=== PATIENT | female | born 1955 | race Hispanic/Latino ===

== ENCOUNTER 2018-04-23 18:05 | Emergency (ER) | payer OTHER, SELFPAY ==
[2018-04-23] MEDS ORDERED: SODIUM CHLORIDE 0.9% 1000ML 1,000 ML IV ONE (18:36)
[2018-04-23] MEDS ORDERED: ONDANSETRON HCL 4 MG/2 ML VIAL ONE (18:36)
[2018-04-23] MEDS ORDERED: SIMETHICONE 80 MG TAB.CHEW ONE (18:37)
[2018-04-23] MEDS ORDERED: HYOSCYAMINE SULFATE 0.125 MG TAB.SUBL SL ONE (18:37)
[2018-04-23 18:51] LABS: BASOPHILS % (AUTO) 0.6 % (0.0-5.0); EOSINOPHILS % (AUTO) 0.2 % (0.0-8.0); HEMATOCRIT 43.3 % (36-48); MEAN CORPUSCULAR HEMOGLOBIN 29.5 pg (27.0-33.0); MEAN CORPUSCULAR HGB CONC 34.5 g/dL (32.0-36.0); MEAN CORPUSCULAR VOLUME 85.4 fL (79-99); MONOCYTES % (AUTO) 9.2 % (3.0-13.0); NUCLEATED RED BLOOD CELLS 0.1 % (0.0-0.19); PLATELET COUNT (AUTO) 274 K/uL (130-400); RED BLOOD CELL COUNT(AUTO) 5.07 MIL/uL (4.00-5.50); RED CELL DISTRIBUTION WIDTH 14.5 % (11.0-15.5)
[2018-04-23 19:04] LABS: ALBUMIN 3.2 g/dL (3.5-5.0); BILIRUBIN,TOTAL 0.7 mg/dL (0.2-1.0); CREATININE 1.8 mg/dL (0.5-1.5); TOTAL PROTEIN, SERUM 7.6 g/dL (6.0-8.3)
[2018-04-23 19:07] LABS: POTASSIUM 2.6 mmol/L (3.5-5.1)
[2018-04-23] MEDS ORDERED: POTASSIUM BICARB/CIT AC 25 MEQ TABLET.EFF ONE (19:36)
[2018-04-23] MEDS ORDERED: MAGNESIUM OXIDE 400 MG TABLET PO ONE (19:36)
[2018-04-23 19:51] LABS: CREATINE KINASE MB 2.9 ng/mL (0.5-3.6)
== END 2018-04-23 22:04 | disposition home or self-care (01) ==
LOC: EDH 18:05
DX: E87.6 Hypokalemia (principal); E86.0 Dehydration; I10 Essential (primary) hypertension; E78.5 Hyperlipidemia, unspecified; Z88.0 Allergy status to penicillin
CPT/HCPCS: 36415; 80053; 82550; 82553; 83690; 83735; 84132; 84484; 85025; 93005; 96374; 99285; J2405; J7030

== ENCOUNTER → 2020-03-16 | Outpatient (CLI) | payer OTHER | END | disposition home or self-care (01) | LOC: OIH 13:00 | PROVIDERS: ATTEND Internal Medicine | DX: M17.0 Bilateral primary osteoarthritis of knee (principal); M79.89 Other specified soft tissue disorders; M85.871 Other specified disorders of bone density and structure, right ankle and foot; M77.32 Calcaneal spur, left foot; M85.872 Other specified disorders of bone density and structure, left ankle and foot; M85.842 Other specified disorders of bone density and structure, left hand; M85.841 Other specified disorders of bone density and structure, right hand | CPT/HCPCS: 73130; 73560; 73630 ==

== ENCOUNTER → 2024-12-23 | Outpatient (CLI) | payer MEDICARE ==
--- NOTE | 2024-12-28 08:58 | HMCSR ---
APPROVED REPORT EXAM: Two-dimensional and M-mode echocardiogram with Doppler and color Doppler. INDICATION ICD: R06.09 Chest Pain 2D Dimensions RVDd2.8 cmLVEF(%)56.2 (>50%)LVED Vol(simp.)93.0 mL IVSd1.2 (0.7-1.1cm)FS(%)29 %LVES Vol(simp.)42.0 mL LVDd3.7 (3.8-5.6cm)Ao Root(2D)3.2 (2.0-3.7cm)LVEF(%, simp.)55 % PWd1.1 (0.7-1.1cm)LVOT diam2.1 (1.8-2.4cm)LA ESV INDEX (BP)20.99 mL/m2 LVDs2.6 (2.5-4.0cm)IVC diam1.5 cm Aortic Valve AoV Vmax1.2 m/Mickey Peak GR5.7 mmHgLVOT Vmax1.1 m/s AoV VTI0.2 mAo Mean GR2.8 mmHgLVOT VTI0.19 m JEROME (VMAX)3.0 cm2AVA (VTI) 3.0 cm2 Mitral Valve MV E Vmax57.7 cm/sDECEL Xumc926 ms MV A Vmax80.2 cm/sP 1/2 T58 ms E/A ratio0.7MVA (PHT)3.8 cm2 MR Max PG72 mmHg TDI E/E' Jdqdih54.6E/E' Lateral9.6 Pulmonary Valve PV Vmax0.9 m/sPV VTI0.16 mPV Mean GR2 mmHg PV Peak GR3.5 mmHg Tricuspid Valve RAP (EST) 3 mmHg Left Ventricle The left ventricle structure and function is normal. There is normal LV segmental wall motion. There is mild concentric left ventricular hypertrophy. LVEF is 55-60%. Grade 1 diastolic dysfunction Right Ventricle The right ventricle is normal size. The right ventricular systolic function is normal. Atria The left atrium size is normal. The right atrium size is normal. Aortic Valve Aortic valve is trileaflet. Aortic valve leaflets are sclerotic but open well. Trace aortic regurgita tion. There is no aortic valvular stenosis. Mitral Valve Mitral valve leaflets are mildly sclerotic but open well. Mitral regurgitation is trace. There is no mitral valve stenosis. Tricuspid Valve The tricuspid valve leaflets appear normal. There is trace tricuspid regurgitation. Pulmonic Valve The pulmonic valve leaflets are thin and pliable; valve motion is normal. Great Vessels The aortic root is normal in size. The IVC is normal in size and collapses >50% with inspiration. Pericardium No pericardial effusion. Conclusion LVEF is 55-60%. Grade 1 diastolic dysfunction Aortic valve is trileaflet. Aortic valve leaflets are sclerotic but open well. The aortic root is normal in size. No pericardial effusion.
--- NOTE | 2024-12-28 08:58 | HMCSR ---
APPROVED REPORT Bilateral Lower Extremity Venous Study for Venous Competence., DVT. Indications i87.1 Vein Imaging CFV (R): Normal flow, augmentation and compression. No evidence of DVT. 7.8mm 1278ms SFJ (R): Normal flow, augmentation and compression. No evidence of DVT. FEM (R): Normal flow, augmentation and compression. No evidence of DVT. POP (R): Normal flow, augmentation and compression. No evidence of DVT. DFV (R): Normal flow, augmentation and compression. No evidence of DVT. PTV (R): Normal flow, augmentation and compression. No evidence of DVT. Peroneals (R): Normal flow, augmentation and compression. No evidence of DVT. CFV (L): Normal flow, augmentation and compression. No evidence of DVT. 10.5mm 2858ms SFJ (L): Normal flow, augmentation and compression. No evidence of DVT. FEM (L): Normal flow, augmentation and compression. No evidence of DVT. POP (L): Normal flow, augmentation and compression. No evidence of DVT. DFV (L): Normal flow, augmentation and compression. No evidence of DVT. PTV (L): Normal flow, augmentation and compression. No evidence of DVT. Peroneals (L): Normal flow, augmentation and compression. No evidence of DVT. Technologist Impression Deep veins of bilateral lower extrimities appear patent and compressible without thrombus. Deep vein reflux seen in RCFV and LCFV. Superficial venous insufficiency seen in LGSV RGSV Junction 3.3mm 0.0ms thigh 1.7mm 292ms knee 2.3mm 0.0ms calf 1.8mm 458ms RSSV prox 1.4mm 0.0ms Mid 1.4 0.0ms LGSV Junction 7.2mm 1550ms Thigh 2.1mm 0.0ms Knee 2.4mm 550ms calf 2.1mm 2133ms LSSV Prox 1.9mm 350ms Mid 2.5mm 0.0ms Conclusion Deep vein reflux seen in RCFV and LCFV. Superficial venous insufficiency seen in LGSV Conclusion Deep vein reflux seen in RCFV and LCFV. Superficial venous insufficiency seen in LGSV
== END | disposition home or self-care (01) ==
LOC: SHCH 09:50
PROVIDERS: ATTEND Internal Medicine Cardiovascular Disease
DX: I08.0 Rheumatic disorders of both mitral and aortic valves (principal); I87.2 Venous insufficiency (chronic) (peripheral); I87.1 Compression of vein; R07.9 Chest pain, unspecified; R06.09 Other forms of dyspnea
CPT/HCPCS: 93306; 93970

== ENCOUNTER → 2025-01-18 | Outpatient (CLI) | payer MEDICARE ==
[2025-01-18] MEDS: REGADENOSON 0.4 MG/5 ML PF SYG IVP ONE (11:15)
== END | disposition home or self-care (01) ==
LOC: SHCH 08:41
PROVIDERS: ATTEND Internal Medicine Cardiovascular Disease
DX: I20.0 Unstable angina (principal)
CPT/HCPCS: 78452; 93017; J2785; A9500 ×2

== ENCOUNTER 2025-03-30 05:54 | Day surgery (SDC) | payer MEDICARE ==
[2025-03-26 10:01] VITALS: BP 180/81; PULSE 89; RESP 18; TEMP 97.2
[2025-03-26 10:07] LABS: BASOPHILS # (AUTO) 0.03 K/uL (0.00-0.20); BASOPHILS % (AUTO) 0.3 % (0.0-5.0); EOSINOPHILS # (AUTO) 0.02 K/uL (0.00-0.70); EOSINOPHILS % (AUTO) 0.2 % (0.0-8.0); HEMATOCRIT 40.1 % (36-48); IMMATURE GRANULOCYTE ABSOLUTE 0.06 K/uL (0-1); LYMPHOCYTES # (AUTO) 2.5 K/uL (1.0-4.8); LYMPHOCYTES % (AUTO) 21.4 % (21.0-51.0); MEAN CORPUSCULAR HEMOGLOBIN 25.4 pg (27.0-33.0); MEAN CORPUSCULAR HGB CONC 31.4 g/dL (32.0-36.0); MEAN CORPUSCULAR VOLUME 80.8 fL (79-99); MONOCYTES # (AUTO) 0.8 K/uL (0.1-1.0); MONOCYTES % (AUTO) 6.9 % (3.0-13.0); NEUTROPHILS # (AUTO) 8.2 K/uL (1.8-7.7); NEUTROPHILS % (AUTO) 70.7 % (40.0-77.0); PLATELET COUNT (AUTO) 313 K/uL (130-400); RED BLOOD CELL COUNT(AUTO) 4.96 MIL/uL (4.00-5.50); RED CELL DISTRIBUTION WIDTH 15.7 % (11.0-15.5); WHITE BLOOD COUNT (AUTO) 11.6 K/uL (4.8-10.8)
[2025-03-26 10:12] LABS: CREATININE 0.7 mg/dL (0.5-1.0); POTASSIUM 4.1 mmol/L (3.5-5.1)
[2025-03-26 10:14] LABS: INR 0.96 (0.85-1.15); PROTHROMBIN TIME 10.2 SEC (9.6-11.6)
[2025-03-26 10:15] LABS: PARTIAL THROMBOPLASTIN TIME 23.5 SEC (26.3-35.5)
[2025-03-26 10:32] LABS: B-TYPE NATRIURETIC PEPTIDE 30 pg/mL (0-100)
--- NOTE | 2025-03-26 11:01 | EKG ---
[facility] Test Date: 2025-03-26 Test Time: 09:55:23 Pat Name: ZULLY KUMAR Department: [facility] Room: Gender: F Flight Communications Specialist: [id number] : 1955 Requested By: DARRIAN DE LA PAZ Order Number: [id number] Reading MD: Darrian De La Paz Measurements Intervals [place] Rate: 82 P: 45 MI: 144 QRS: 11 QRSD: 82 T: 28 QT: 384 QTc: 449 Interpretive Statements Sinus rhythm Probable left atrial enlargement Compared to ECG 07/18/2018 10:58:26 ST (T wave) deviation no longer present Electronically Signed On 03-26-2025 15:52:14 CDT by Darrian De La Paz Please click the below link to view image of tracing.
--- NOTE | 2025-03-26 12:18 | HMCIMG ---
CHEST 1VW HISTORY: Re-op COMPARISON: 07/18/2018 FINDINGS: A frontal projection of the chest was obtained. No acute pulmonary infiltrates is seen. The heart is borderline enlarged. Prominent interstitial markings are seen. Degenerative changes are seen IMPRESSION: 1. No acute pulmonary infiltrate is seen.
--- NOTE | 2025-03-29 11:41 | NUR ---
report reported wbc to anselmo mccray. received orders to collect ua on admission.
[2025-03-30] VITALS (12 sets, daily range): BP systolic 110–136; BP diastolic 61–84; PULSE 67–95; RESP 15–18; TEMP 97–98.3
[~2025-03-30] VITALS: Ht 152.4 cm; Wt 88.7 kg
[~2025-03-30 05:54] MED LIST: AMLO-257 PO; CLOP75TA32 PO; DOCU100C33 PO; FOLI1 PO; IBUP-2070 PO; LOSA50TA64 PO; METH2.5T6 PO; ROSU40TA88 PO
[2025-03-30] MEDS: 0.9%NACL 1000ML 1,000 ML IV SCH (06:54)
[2025-03-30] MEDS ORDERED: NITROGLYCERIN 50MG VIAL ONE (06:59)
[2025-03-30] MEDS ORDERED: LIDOCAINE HCL 400MG/20ML VIAL ONE (06:59)
[2025-03-30] MEDS ORDERED: HEParin-NS 1,000 UNIT/500 ML 1,000 ML IV ONE (06:59)
[2025-03-30] MEDS ORDERED: IOHEXOL 350 MG/ML 100ML INFUS..BTL IV ONE (06:59)
[2025-03-30] MEDS ORDERED: HEParin 10,000 UNIT/10ML (1,000 UNIT/ML) VIAL ONE (07:06)
[2025-03-30] MEDS ORDERED: MIDAZOLAM HCL 1 MG/ML 2ML VIAL ONE (07:21)
[2025-03-30] MEDS ORDERED: FENTanyl CITRate PF 50 MCG/1 ML 2ML VIAL ONE (07:21)
[2025-03-30] MEDS ORDERED: BIVALIRUDIN 250 MG/VIAL IV ONE (07:22)
[2025-03-30 07:43] LABS: APPEARANCE,URINE CLEAR (CLEAR); BILIRUBIN,URINE NEGATIVE (NEGATIVE); COLOR,URINE YELLOW (YELLOW); GLUCOSE, URINE (UA) NEGATIVE (NEGATIVE); KETONES,URINE NEGATIVE (NEGATIVE); LEUKOCYTE ESTERASE ,URINE NEGATIVE Leu/uL (NEGATIVE); NITRATE,URINE NEGATIVE (NEGATIVE); OCCULT BLOOD,URINE SMALL (NEGATIVE); PH,URINE 6.5 (5.0-8.0); PROTEIN,URINE 10 mg/dL (NEGATIVE); UROBILINOGEN,URINE 0.2 mg/dL (0.2-1.0)
[2025-03-30 07:45] LABS: ADD UA MICROSCOPIC YES
[2025-03-30 07:46] LABS: MUCUS,URINE RARE LPF (None Seen); SQUAMOUS EPITHELIAL CELL,UR RARE /HPF (0-2); WBC,URINE 0-1 /HPF (0-1)
[2025-03-30] MEDS ORDERED: DEXTROSE 50%-WATER 50 ML DISP.SYRIN IV PRN (08:00)
[2025-03-30] MEDS ORDERED: NITROGLYCERIN 0.4 MG SL TAB SL PRN (08:00)
[2025-03-30] MEDS ORDERED: GLUCAGON 1MG KIT 1 MG ML IM PRN (08:00)
[2025-03-30] MEDS ORDERED: 0.9%NACL 1000ML 1,000 ML IV SCH (08:00)
--- NOTE | 2025-03-30 08:04 | PRN ---
Left Heart Cath-De La Paz PROCEDURE: 1. Right common femoral arterial sheath placement. 2. Selective coronary angiogram. 3. Left heart catheterization. 4. Left ventriculogram. INDICATIONS: High-risk stress test DESCRIPTION OF PROCEDURE: The patient was brought to the catheterization suite and prepped and draped in sterile fashion. An IV was started, if not already in place and both groins were exposed for arterial access. 1% lidocaine was used for local anesthesia and then a micropuncture kit was used to gain access and once free-flowing blood was seen, modified Seldinger technique was utilized to place a 6 Wolof sheath into the right common femoral artery. Next, preformed JL4 and JR4 Catheters were then used to selectively engage the [place] coronary vessels and multiple hand contrast injections were performed in different views to define the coronary anatomy. Next, a 6 Wolof angled pigtail catheter catheter was used to cross the aortic valve. Pressure measurements were obtained in the left ventriculogram was in the 30 BURRELL position. Next, pullback method was performed. At the end of the case, sheath was pulled with the use of a Perclose system for closure of arteriotomy site. No complications occurred. FINDINGS: The left main artery bifurcates into the LAD and left circumflex and has no stenosis present. The left anterior descending artery and its diagonal branch system are large slightly tortuous distally with no stenosis present. The left circumflex artery is a codominant system giving rise to the left posterolateral branch. The left circumflex artery its obtuse marginal branch system and the RPL are free of any significant disease. The right coronary artery is a codominant system giving rise to the right posterior descending artery. The right coronary artery and the PDA are free of any significant stenosis. LVEDP is slightly elevated at 17 mmHg Left ventricular ejection fraction is greater than 65% Wall motion in views obtained as normal There was no evidence of aortic stenosis or mitral regurgitation. RECOMMENDATIONS: Continue medical management for hypertension and dyslipidemia Encourage walking program Encourage weight loss WERNER DE LA PAZ MD March 30, 2025 08:04
== END 2025-03-30 14:08 | disposition home or self-care (01) ==
LOC: DAH 05:54
PROVIDERS: ATTEND Internal Medicine Cardiovascular Disease
DX: R94.39 Abnormal result of other cardiovascular function study (principal); I25.118 Atherosclerotic heart disease of native coronary artery with other forms of angina pectoris; I87.1 Compression of vein; I87.2 Venous insufficiency (chronic) (peripheral); I50.33 Acute on chronic diastolic (congestive) heart failure; E78.5 Hyperlipidemia, unspecified; M06.9 Rheumatoid arthritis, unspecified; E66.9 Obesity, unspecified; J45.909 Unspecified asthma, uncomplicated; Z88.6 Allergy status to analgesic agent; Z68.33 Body mass index [BMI] 33.0-33.9, adult; Z90.710 Acquired absence of both cervix and uterus; Z79.01 Long term (current) use of anticoagulants; Z79.899 Other long term (current) drug therapy
CPT/HCPCS: 36415; 71045; 80048; 81001; 83880; 85025; 85610; 85730; 93005; 93458; 96360; 96361; 99156; 99157; A4606; C1760; C1894; J0583; J1644; J2250; J3010; J3490; Q9967; A4215; A4216; A4221; A4222; A4223; A4663; Q9965

== ENCOUNTER 2025-04-29 06:06 | Day surgery (SDC) | payer MEDICARE ==
[2025-04-27 10:13] LABS: BASOPHILS # (AUTO) 0.03 K/uL (0.00-0.20); BASOPHILS % (AUTO) 0.4 % (0.0-5.0); EOSINOPHILS # (AUTO) 0.25 K/uL (0.00-0.70); EOSINOPHILS % (AUTO) 3.2 % (0.0-8.0); HEMATOCRIT 37.9 % (36-48); IMMATURE GRANULOCYTE ABSOLUTE 0.03 K/uL (0-1); LYMPHOCYTES # (AUTO) 2.7 K/uL (1.0-4.8); LYMPHOCYTES % (AUTO) 33.6 % (21.0-51.0); MEAN CORPUSCULAR HEMOGLOBIN 25.4 pg (27.0-33.0); MEAN CORPUSCULAR HGB CONC 31.7 g/dL (32.0-36.0); MEAN CORPUSCULAR VOLUME 80.3 fL (79-99); MONOCYTES # (AUTO) 0.7 K/uL (0.1-1.0); MONOCYTES % (AUTO) 8.5 % (3.0-13.0); NEUTROPHILS # (AUTO) 4.3 K/uL (1.8-7.7); NEUTROPHILS % (AUTO) 53.9 % (40.0-77.0); PLATELET COUNT (AUTO) 244 K/uL (130-400); RED BLOOD CELL COUNT(AUTO) 4.72 MIL/uL (4.00-5.50); RED CELL DISTRIBUTION WIDTH 15.8 % (11.0-15.5); WHITE BLOOD COUNT (AUTO) 7.9 K/uL (4.8-10.8)
[2025-04-27 10:16] VITALS: BP 136/82; PULSE 82; RESP 14; TEMP 97.3
[2025-04-27 10:21] LABS: CREATININE 0.7 mg/dL (0.5-1.0); POTASSIUM 4.1 mmol/L (3.5-5.1)
[2025-04-27 10:23] LABS: INR 0.96 (0.85-1.15); PROTHROMBIN TIME 10.2 SEC (9.6-11.6)
[2025-04-27 10:25] LABS: PARTIAL THROMBOPLASTIN TIME 24.3 SEC (26.3-35.5)
[~2025-04-29] VITALS: Ht 160 cm; Wt 89.3 kg
[~2025-04-29 06:06] MED LIST changes: -DOCU100C33 PO; +ISOS30TA92 PO
[2025-04-29 06:11] VITALS: BP 141/85; PULSE 86; RESP 18; TEMP 97.5
[2025-04-29] MEDS: 0.9%NACL 1000ML 1,000 ML IV SCH (06:35)
[2025-04-29] MEDS ORDERED: HEParin 10,000 UNIT/10ML (1,000 UNIT/ML) VIAL ONE (07:16)
[2025-04-29] MEDS ORDERED: IODIXANOL 320 MG/ML 100 ML VIAL ONE (07:16)
[2025-04-29] MEDS ORDERED: LIDOCAINE HCL 400MG/20ML VIAL ONE (07:16)
[2025-04-29] MEDS ORDERED: HEParin-NS 1,000 UNIT/500 ML 1,000 ML IV ONE (07:16)
[2025-04-29] MEDS ORDERED: FENTanyl CITRate PF 50 MCG/1 ML 2ML VIAL ONE (07:36)
[2025-04-29] MEDS ORDERED: MIDAZOLAM HCL 1 MG/ML 2ML VIAL ONE (07:36)
[2025-04-29] MEDS ORDERED: DEXTROSE 50%-WATER 50 ML DISP.SYRIN IV PRN (08:00)
[2025-04-29] MEDS ORDERED: GLUCAGON 1MG KIT 1 MG ML IM PRN (08:00)
--- NOTE | 2025-04-29 08:05 | PRN ---
Procedure Note INDICATION FOR PROCEDURE: [] Iliac vein compression Deep venous reflux Venous insufficiency PROCEDURE: [] Conscious sedation Left common femoral vein sheath placement 8 Martiniquais Bilateral common femoral venogram Intravascular ultrasound of IVC, bilateral common iliac external iliac common femoral veins DATE OF PROCEDURE: April 29, 2025 HOD CARRIER: Darrian De La Paz MD, F.A.C.C. PROCEDURE NOTE: [] Patient was brought to catheterization suite and prepped and draped in sterile fashion. An IV was started if not already in place and both groins were exposed for arterial access. 2% lidocaine was used for local anesthesia and then a micro puncture kit was used to gain access and once free flow blood was seen modified Seldinger technique was utilized to place a 8 Martiniquais sheath in the left common femoral vein. Next a venogram was performed. Next a glidewire was then placed in the IVC and then an IVUS catheter was placed over Glidewire and interrogation of IVC left common iliac external iliac and common femoral vein was performed with the intravascular ultrasound catheter. Next it was removed and then an Omni flush catheter was then placed over wire and then used to direct the Glidewire to the right common femoral vein. Once this occurred the Omni flush catheter was then advanced wire was removed and then a venogram was performed in the right. Next over wire the Omni flush catheter was removed and an IVUS catheter was then placed to interrogate the right common femoral vein external iliac and common iliac vein. Findings were as described below. At end of case a Vascade closure system was used to close venous access site on left and no complications occurred. FINDINGS: [] There is 51.2% compression of left common iliac vein and 60.6 compression of left external iliac vein measuring 14.5 mm There is a 73.6% compression of right common iliac vein and a 56.5% compression of right external iliac vein and a 14.5 mm vessel IMPRESSION: [] Critical compression of bilateral common iliac and external iliac veins PLAN: [] Patient to follow up in clinic in 1-2 weeks and we will try and obtain au thorization regarding patient's critical iliac vein compression to proceed with iliac vein intervention bilaterally DARRIAN DE LA PAZ MD Apr 29, 2025 08:05
[2025-04-29 08:20] VITALS: BP 137/77; PULSE 66; RESP 13; TEMP 97
[2025-04-29 08:35] VITALS: BP 137/67; PULSE 76; RESP 17
[2025-04-29 08:50] VITALS: BP 121/67; PULSE 75; RESP 11
[2025-04-29 09:05] VITALS: BP 128/63; PULSE 77; RESP 11
[2025-04-29 09:29] VITALS: BP 132/64; PULSE 76; RESP 14; TEMP 97
== END 2025-04-29 09:29 | disposition home or self-care (01) ==
LOC: DAH 06:06
PROVIDERS: ATTEND Internal Medicine Cardiovascular Disease
DX: I87.1 Compression of vein (principal); I87.2 Venous insufficiency (chronic) (peripheral); I20.0 Unstable angina; E78.5 Hyperlipidemia, unspecified; E66.9 Obesity, unspecified; M06.9 Rheumatoid arthritis, unspecified; Z90.710 Acquired absence of both cervix and uterus; Z68.33 Body mass index [BMI] 33.0-33.9, adult; Z88.6 Allergy status to analgesic agent; Z88.0 Allergy status to penicillin; Z79.01 Long term (current) use of anticoagulants; Z79.899 Other long term (current) drug therapy
CPT/HCPCS: 80048; 85025; 85610; 85730; 36415; 99156; 99157; 36012; 75822; 37252; 37253 ×5; A4223 ×3; C1769; C1894 ×2; C1760; C1753; J3010; J3490; J7030; J2250; J1644; Q9967; A4215; A4222; A4221; A4663; A4216; A4606

== ENCOUNTER 2025-07-21 06:07 | Day surgery (SDC) | payer MEDICARE ==
[2025-07-19 09:48] LABS: IMMATURE GRANULOCYTE ABSOLUTE 0.03 K/uL (0-1); NUCLEATED RED BLOOD CELLS 0.0 % (0.0-0.19); PLATELET COUNT (AUTO) 287 K/uL (130-400); RED BLOOD CELL COUNT(AUTO) 4.57 MIL/uL (4.00-5.50); RED CELL DISTRIBUTION WIDTH 17.8 % (11.0-15.5); WHITE BLOOD COUNT (AUTO) 9.4 K/uL (4.8-10.8)
[2025-07-19 10:00] LABS: INR 0.96 (0.85-1.15)
[2025-07-19 10:06] LABS: CREATININE 0.7 mg/dL (0.5-1.0); GLOMERULAR FILTR. RATE CALC 95.0 mL/min (>90); GLUCOSE,RANDOM 94.0 mg/dL (70-105); SODIUM SERUM 142.0 mmol/L (136-145); UREA NITROGEN, BLOOD 15.0 mg/dL (7-18)
[2025-07-19 10:11] VITALS: BP 144/86; PULSE 75; RESP 15; TEMP 97.3
[~2025-07-21] VITALS: Ht 165.1 cm; Wt 87.0 kg
[2025-07-21] VITALS (10 sets, daily range): BP systolic 122–162; BP diastolic 68–85; PULSE 68–90; RESP 11–16; TEMP 96.8–97.2
[~2025-07-21 06:07] MED LIST changes: -AMLO-257 PO; -CLOP75TA32 PO; +IBUP-1492 PO; -IBUP-2070 PO; -ISOS30TA92 PO
[2025-07-21] MEDS: 0.9%NACL 1000ML 1,000 ML IV SCH (06:36)
[2025-07-21] MEDS ORDERED: LIDOCAINE HCL 400MG/20ML VIAL ONE (07:07)
[2025-07-21] MEDS ORDERED: HEParin-NS 1,000 UNIT/500 ML 1,000 ML IV ONE (07:07)
[2025-07-21] MEDS ORDERED: NITROGLYCERIN 50MG VIAL ONE (07:07)
[2025-07-21] MEDS ORDERED: IODIXANOL 320 MG/ML 100 ML VIAL ONE (07:08)
[2025-07-21] MEDS ORDERED: MIDAZOLAM HCL 1 MG/ML 2ML VIAL ONE ×2 (07:25→07:30)
--- NOTE | 2025-07-21 08:16 | PRN ---
Procedure Note INDICATION FOR PROCEDURE: [] Severe bilateral common iliac vein compression PROCEDURE: [] Conscious sedation Bilateral common femoral vein sheath placement 9 Jamaican Bilateral common femoral venogram Intravascular ultrasound of IVC, bilateral common iliac external iliac common femoral veins 14 mm x 150 mm Medtronic venous self expanding stent to left common iliac and left external iliac vein 12 mm x 120 mm Medtronic venous self expanding stent to right common iliac and external iliac vein DATE OF PROCEDURE: July 21, 2025 GRAIN OPERATOR: Darrian De La Paz MD, F.A.C.C. PROCEDURE NOTE: [] Patient brought to catheterization suite prepped draped sterile fashion IV started if not already in place both groins exposed for venous access. Ultrasound guidance was utilized for placement of a 9 Jamaican sheath into the left common femoral vein using modified Seldinger technique. Same technique was utilized for placing a 9 Jamaican sheath to the right common femoral vein Bilateral common femoral venogram was performed. Bilateral intravascular ultrasound of IVC, iliac external iliac and common femoral veins 14 mm x 150 mm Medtronic venous self expanding stent placed to left common iliac and external iliac vein and deployed. 12 mm x 120 mm Medtronic venous self expanding stent was then placed in the right common iliac and external iliac vein and deployed . Follow up ultrasound was done of IVC, bilateral common iliac external iliac common femoral veins and both stents were noted to be well apposed. At end of case Vascade closure system was used for closure of both sites and no complications occurred. FINDINGS: [] Critical compression known of bilateral common iliac and external iliac veins greater than 50% IMPRESSION: [] Successful stent placement to left common iliac and external iliac vein with the use of a 14 mm x 150 mm Medtronic venous self expanding stent Successful stent placement to right common iliac and external iliac vein with the use of a 12 mm x 120 mm Medtronic venous self expanding stent PLAN: [] Secondary to aspirin allergy patient will be maintained on clopidogrel at 75 mg daily for 90 days uninterrupted. Patient will be dismissed home later today. DARRIAN DE LA PAZ MD Jul 21, 2025 08:15
[2025-07-21] MEDS ORDERED: 0.9%NACL 1000ML 1,000 ML IV SCH (08:30)
[2025-07-21] MEDS ORDERED: DEXTROSE 50%-WATER 50 ML DISP.SYRIN IV PRN (08:30)
[2025-07-21] MEDS ORDERED: GLUCAGON 1MG KIT 1 MG ML IM PRN (08:30)
--- NOTE | 2025-07-21 10:48 | NUR ---
ACTIVITY/URINARY: ASSISTED TO STANDING POSITION WITHOUT COMPLAINING OF DIZZINESS. AMBULATED TO BATHROOM SLOW STEADY GAIT WITH ASSISTANCE. PT VOIDED QS YELLOW COLOR URINE IN TOILET. ASSISTED BACK TO BED.
== END 2025-07-21 12:25 | disposition home or self-care (01) ==
LOC: DAH 06:07
PROVIDERS: ATTEND Internal Medicine Cardiovascular Disease
DX: I87.1 Compression of vein (principal); I87.2 Venous insufficiency (chronic) (peripheral); I10 Essential (primary) hypertension; E78.5 Hyperlipidemia, unspecified; M06.9 Rheumatoid arthritis, unspecified; E66.9 Obesity, unspecified; J45.909 Unspecified asthma, uncomplicated; I20.0 Unstable angina; Z68.33 Body mass index [BMI] 33.0-33.9, adult; Z88.0 Allergy status to penicillin; Z88.6 Allergy status to analgesic agent; Z79.01 Long term (current) use of anticoagulants; Z90.710 Acquired absence of both cervix and uterus; Z79.899 Other long term (current) drug therapy
CPT/HCPCS: 80048; 85025; 85610; 85730; 36415; 37238; 37239; 37252; 37253 ×5; 99156; 99157; 36005; C1876 ×2; C1769; C1894 ×2; C1760; C1753; J3010; J3490 ×2; J7030; J1644 ×2; J2250 ×2; Q9967; A4215; A4222; A4221; A4663; A4216; A4606; A4223 ×3; 75822; 96360; 96361

== ENCOUNTER 2025-09-15 06:25 | Observation (INO) | payer MEDICARE ==
[2025-09-13 10:45] LABS: IMMATURE GRANULOCYTE ABSOLUTE 0.07 K/uL (0-1); NUCLEATED RED BLOOD CELLS 0.0 % (0.0-0.19); PLATELET COUNT (AUTO) 290 K/uL (130-400); RED BLOOD CELL COUNT(AUTO) 4.48 MIL/uL (4.00-5.50); RED CELL DISTRIBUTION WIDTH 16.9 % (11.0-15.5); WHITE BLOOD COUNT (AUTO) 7.1 K/uL (4.8-10.8)
[2025-09-13 10:53] VITALS: BP 150/85; PULSE 78; RESP 18; TEMP 97.3
[2025-09-13 10:53] LABS: CREATININE 0.6 mg/dL (0.5-1.0); GLOMERULAR FILTR. RATE CALC 98.0 mL/min (>90); GLUCOSE,RANDOM 96.0 mg/dL (70-105); SODIUM SERUM 143.0 mmol/L (136-145); UREA NITROGEN, BLOOD 13.0 mg/dL (7-18)
[2025-09-13 10:56] LABS: INR 0.95 (0.85-1.15)
--- NOTE | 2025-09-13 11:05 | NUR ---
RE: IS INITIAL IS INITIAL TEACHING DONE BY RT TEMO DURING PREOP.
[2025-09-15] VITALS (28 sets, daily range): BP systolic 100–150; BP diastolic 56–84; PULSE 60–105; RESP 18–19; TEMP 97.1–98.4; O2SAT 98–99
[~2025-09-15] VITALS: Ht 165.1 cm; Wt 89.4 kg
[2025-09-15] MEDS: LACTATED RINGERS 1000ML 1,000 ML IV ONE (06:16)
[2025-09-15] MEDS: CLINDAMYCIN IVPB 900MG/50ML 0 ML IV ONE (06:16)
[2025-09-15] MEDS ORDERED: TRANEXAMIC ACID 1000MG/10ML ONE (06:37)
[2025-09-15] MEDS ORDERED: MIDAZOLAM HCL 1 MG/ML 2ML VIAL ONE (06:52)
[2025-09-15] MEDS ORDERED: LIDOCAINE 2%-EPI 1:200,000 20 ML VIAL IJ ONE (07:21)
[2025-09-15] MEDS ORDERED: HYDROcodone/APAP 5/325 1 TAB TABLET PO PRN (07:30)
[2025-09-15] MEDS ORDERED: FERROUS FUMARATE 324 MG TABLET PO PRN (07:30)
[2025-09-15] MEDS ORDERED: PoTASSium chl 10% ELIXIR 20MEQ 20 MEQ/15 ML UDCUP PO PRN (07:30)
[2025-09-15] MEDS: 0.9%NACL 1000ML 1,000 ML IV SCH (07:30)
[2025-09-15] MEDS ORDERED: CYCLOBENZAPRINE HCL 10 MG TABLET PO PRN (07:30)
[2025-09-15] MEDS ORDERED: PoTASSium chloRIDE 20MEQ ER 20 MEQ ERTAB PO PRN (07:30)
[2025-09-15] MEDS: TRANEXAMIC ACID 1000MG/10ML IV ONE (09:13)
[2025-09-15] MEDS ORDERED: NEOSTIGMINE METHYLSULFATE 1MG/ML IV ONE (09:19)
[2025-09-15] MEDS ORDERED: GLYCOPYRROLATE 0.2 MG/ML 5 ML VIAL ONE (09:19)
--- NOTE | 2025-09-15 09:21 | OP ---
Operative Note: DATE OF PROCEDURE: 09/15/25 PREOPERATIVE DIAGNOSIS: Left knee osteoarthritis. POSTOPERATIVE DIAGNOSIS: Left knee osteoarthritis. PROCEDURE PERFORMED: Left knee total knee arthroplasty. SURGEON: Heidi Sutton MD MANNEQUIN SANDER AND FINISHER: Trace Lindsey and Mariaa Quintana. ANESTHESIA: General with adductor canal block. ANESTHESIA: HEARING AID SPECIALIST Demond Laguna. ESTIMATED BLOOD LOSS: 50cc. COMPLICATIONS: None. DRAINS: None. SPECIMENS REMOVED: resected bone. Not sent to pathology. IMPLANTS: [employer] Journey II BCS size 4 Oxinium femur, size 4 tibial base plate, 35 mm patella, 12 mm polyethylene STATEMENT OF MEDICAL NECESSITY: The patient is a 70-year-old female who suffers from left knee arthritis secondary to rheumatoid arthritis failing conservative management. After discussion of the risks, benefits, and alternatives with the patient, they voluntarily agreed to undergo the aforementioned procedure. DESCRIPTION OF PROCEDURE: Patient was properly identified in the preoperative holding area. Surgical site marking was verified and surgery consent reviewed. The patient was then taken to the operating room and placed in supine position on the OR table. After induction of general anesthesia, preoperative antibiotics were given, all bony prominences were well-padded, and a well padded tourniquet was applied but not inflated at this time. The left lower extremity was then prepped and draped in usual sterile fashion. Surgical time out was done verifying correct surgery, side, site, and location to be performed. We then began the procedure by exsanguinating the limb using an Esmarch and inf lating the tourniquet to 350 mmHg. At this point, we made an anterior midline incision using a 10 blade, coming down sharply the level of the fascia. Skin flaps were elevated medially and laterally. We then obtained a clean 10 blade and performed a standard medial parapatellar arthrotomy. We excised the infrapatellar fat pad. We performed our soft tissue releases off of the tibia. We transected the ACL and removed the anterior portion of the medial & lateral meniscus. We then brought the knee into hyperflexion with the patella everted. We used our entry reamer to enter the femoral canal. We then placed our intramedullary cutting guide for our distal femoral cutting block. We then performed our distal femoral osteotomy ensuring appropriate rotation and removed the bony wafer. We then removed these pins and block and then used jig 2 to size the distal femur with the after mentioned size found. We then placed our 5-in-1 cutting block in 3 degrees of external rotation and took our 5 cuts ensuring to protect the patellar tendon and the collateral ligaments. We then removed the cutting block and our bony fragments using a curved osteotome. We then placed our PCL retractor subluxating the tibia anteriorly. Using an extra medullary tibial cutting guide, we hung the block for our proximal tibial cut taking 2 mm off the more diseased portion. Prior to pinning this block in place, we ensured appropriate varus/valgus alignment and posterior slope similar to the [place] slope of the patient's knee. We then performed our proximal tibial osteotomy and removed the bony wafer using Bovie electrocautery to release any remaining soft tissue attachments. We then used our tibial sizing paddle and checked once more for varus & valgus alignment and found this to be appropriate. At this point, we pinned our tibial paddle in place. We then removed the PCL retractor and subluxated the tibia posteriorly while we placed our femoral trial component. We then finished preparing the notch with the reamer and box chisel. The notch portion of the trial femoral component was then placed. A posterior stabilized polyethylene, size 9 trial was placed. This was immediately increased to a size trial polyethylene due to laxity with varus and valgus stress. The knee was then taken through range of motion and found to have stable full range of motion. We then placed a bump under the ankle and everted the patella to perform our freehand cut of the undersurface the patella. We then sized our patella and reamed to the lug holes for this. We placed our trial patellar component and begin to take the knee through range of motion. The patella had mild lateral tracking which improved after a lateral release. At this point we began removing our trial components and punched the tibial keel prior to removing our tibial trial component. Final components were opened and cement was mixed on the back table while we injected local cocktail in the posterior capsule. We then thoroughly irrigated out the bone and dried the bony surfaces. We cemented our tibial component in place ensuring to remove excess cement and placed our trial polyethylene. We then cemented our femoral component in place once again taking time to ensure excess cement was removed leg was brought into full extension to help squeeze the excess cement from around the femoral component. We then brought the knee back in a flexion to remove this portion of the cement at this point we placed the ankle in a bump thoroughly irrigated off the patellar component and cemented our patellar component in standard fashion again removing excess cement. While we waited for the cement to cure, we thoroughly irrigated out the wound with normal saline. Once our cement had cured, we took the knee through a range of motion and found full and stable range of motion. We then elected to use the size 12 polyethylene and removed our trial polyethylene. We impacted our final polyethylene component in place in standard fashion and took the knee through a range of motion check once more. This was satisfactory so we began to repair the arthrotomy using #5 Ethibond and #1 Vicryl in interrupted [id number] fashion. Subcutaneous tissue was repaired using 2-0 Vicryl. Running subcuticular 3-0 Monocryl stitch with Dermabond placed over this for the skin. We then applied a foam barrier dressing and a pressure dressing consisting of 4 x 4's fluffs and an Gary wrap. The tourniquet was then deflated. Patient was awakened from anesthesia, and they were taken to the recovery room in stable condition. HEIDI SUTTON MD Sep 15, 2025 09:21
[2025-09-15] MEDS: SUGAMMADEX SODIUM 200 MG/2 ML VIAL IV ONE (09:54)
--- NOTE | 2025-09-15 10:51 | HMCIMG ---
EXAM: CR right Knee, 2 View. CLINICAL HISTORY: S/P LEFT TKA SURGERY COMPARISON: None provided. FINDINGS: Postsurgical changes of left knee arthroplasty. Gas within the joint space. Hardware components appear stable. No periprosthetic fractures. No findings to suggest loosening or motion about the hardware. No acute fracture or aggressive appearing osseous lesion. The soft tissues are unremarkable. IMPRESSION: No acute osseous pathology evident. Postsurgical change of left knee arthroplasty. Hardware appears appropriately positioned and stable. /[facility]
--- NOTE | 2025-09-15 10:52 | NUR ---
PATIENT REPORT RECEIVED REPORT FROM PACU NURSE GENTRY. PATIENT OF DR. ELISE FOR LT TKA. DERMABOND WITH OPTIFOAM AND ZOFIA BANDAGE IN PLACE. FIRST DOSE OF ANCEF AND TORADOL WAS ADMINISTERED. PATIENT GIVEN 25 MICS OF FENTANYL FOR PAIN. EBL OF 50. PROVIDER ORDERS HAVE BEEN PLACED.
--- NOTE | 2025-09-15 11:00 | NUR ---
UNIT ARRIVAL RECEIVED PATIENT FROM PACU NURSE JESS. PATIENT RESTING COMFORTABLY NO SIGNS OF DISTRESS NOTED. FAMILY AT BEDSIDE. PATIENT DENIES PAIN AT THIS TIME. PHYSICAL THERAPY AND RESPIRATORY THERAPY NOTIFIED. SCD'S APPLIED, POST OP VITALS STARTED. BED LOCKED AND IN LOWEST POSITION. CALL LIGHT WITHIN REACH.
[2025-09-15] MEDS: HYDROcodone/APAP 5/325 1 TAB TABLET PO PRN (14:27)
--- NOTE | 2025-09-15 15:49 | NUR ---
DCP CM MET WITH PT AND DAUGHTER [phone] THIS AFTERNOON, INITIAL ASSESSMENT DONE. PATIENT IS INDEPENDENT PRIOR TO SURGERY, LIVES AT HOME ALONE, DAUGHTER LIVES CLOSE BY, DAUGHTER VERBALIZED PT WILL DC HOME W/HER ONCE READY ADDRESS: [id number] [place] [address]. PT VERBALIZED SHE HAS A ROLLATOR WALKER AND CANE AT HOME. DENIES ANY OTHER EQUIPMENT/SERVICES. FEELS SAFE TO GO BACK HOME, STILL DRIVE, DAUGHTER ABLE TO ASSIST WITH TRANSPORTATION AND NEEDS NECESSARY. DISCUSSED MD RECOMMENDATIONS FOR HOME W/HH FOR PT WELL DME PT WILL NEED A STANDARD WALKER FOR SAFE DC HOME, PT AND DAUGHTER AGREEABLE, DAUGHTER KEDAR CONSENT SHELL FOR ANY IN NETWORK HOME HEALTH AND DME. DCP HOME W/HH AND DME ONCE APPROVED. CM TO CONTINUE TO FOLLOW UP. Addendum: 09/15/25 at 1551 by JAKUB PARKINSON LVN CM Amended: Links added.
[2025-09-16 03:55] VITALS: BP 126/59; PULSE 79; RESP 18; TEMP 98.3
[2025-09-16 04:17] LABS: NUCLEATED RED BLOOD CELLS 0.0 % (0.0-0.19); PLATELET COUNT (AUTO) 203.0 K/uL (130-400); RED BLOOD CELL COUNT(AUTO) 3.78 MIL/uL (4.00-5.50); RED CELL DISTRIBUTION WIDTH 16.9 % (11.0-15.5); WHITE BLOOD COUNT (AUTO) 7.6 K/uL (4.8-10.8)
[2025-09-16 04:27] LABS: CREATININE 0.6 mg/dL (0.5-1.0); GLOMERULAR FILTR. RATE CALC 98.0 mL/min (>90); GLUCOSE,RANDOM 104.0 mg/dL (70-105); SODIUM SERUM 144.0 mmol/L (136-145); UREA NITROGEN, BLOOD 8.0 mg/dL (7-18)
[2025-09-16 07:58] VITALS: BP 128/80; PULSE 82; RESP 19; TEMP 97
--- NOTE | 2025-09-16 08:08 | PN ---
Ortho postop day one. This morning the patient is awake alert and oriented. The daughters at the bedside. She is reporting adequate pain control. She is seated out of a chair alternating extending and flexing her knee. The Gary bandage has been removed the dressing to the anterior joint is intact. She has been alternating ice throughout the evening and currently. Gastrocnemius a soft nontender. Negative Homans. At this time SCD sleeves are not on. Vital signs have remained stable. Afebrile. Laboratory results reviewed noted to have a drop in hemoglobin and hematocrit as expected. Patient is asymptomatic at this time. Voiding on her own and passing gas pending BM. Operative findings discussed with the patient. Laboratory results reviewed noted to have a drop in hemoglobin and hematocrit as expected after TKA. Patient is currently asymptomatic we will continue to observe and treat per protocol as necessary. Reinforced incentive spirometry returned demonstration adequate. Ambulated yesterday with physical therapy about 15 ft and is pending further physical therapy this morning. Anticipated discharge goal is home health/PT. Assessment: Status post left total knee arthroplasty. Asymptomatic acute postoperative blood loss anemia. Plan: Continue with Dr. Sutton's TKA protocol and discharge planning. Asymptomatic acute postoperative blood loss anemia addressed with the protocol as necessary. Vitals/Labs Vital Signs Date Time Temp Pulse Resp B/P (MAP) Pulse Ox O2 Delivery O2 Flow Rate FiO2 09/16/25 07:58 97.0 82 19 128/80 92 Room Air 09/16/25 03:55 21 09/15/25 23:20 2.0 Laboratory Tests 09/16/25 04:06 Medications Current Medications Clindamycin HCl/ Dextrose 0 ml @ As Directed STK-MED ONCE IV; Start 09/15/25 at 06:16; Stop 09/15/25 at 06:16; Status DC Lactated Ringer's 1,000 ml @ As Directed STK-MED ONCE IV; Start 09/15/25 at 06:16; Stop 09/15/25 at 06:16; Status DC Tranexamic Acid 1,000 mg STK-MED ONCE .ROUTE; Start 09/15/25 at 06:37; Stop 09/15/25 at 06:37; Status DC Ketorolac Tromethamine 30 mg STK-MED ONCE .ROUTE; Start 09/15/25 at 06:37; Stop 09/15/25 at 06:37; Status DC Ropivacaine 150 mg STK-MED ONCE .ROUTE; Start 09/15/25 at 06:38; Stop 09/15/25 at 06:38; Status DC Propofol 200 mg STK-MED ONCE IV; Start 09/15/25 at 06:52; Stop 09/15/25 at 06:52; Status DC Midazolam HCl 2 mg STK-MED ONCE .ROUTE; Start 09/15/25 at 06:52; Stop 09/15/25 at 06:52; Status DC Fentanyl Citrate 100 mcg STK-MED ONCE .ROUTE; Start 09/15/25 at 06:52; Stop 09/15/25 at 06:53; Status DC Phenylephrine HCl 10 mg STK-MED ONCE IV; Start 09/15/25 at 07:09; Stop 09/15/25 at 07:09; Status DC Fentanyl Citrate 100 mcg STK-MED ONCE .ROUTE; Start 09/15/25 at 07:09; Stop 09/15/25 at 07:09; Status DC Cefazolin Sodium 2 gm STK-MED ONCE .ROUTE; Start 09/15/25 at 07:11; Stop 09/15/25 at 07:11; Status DC Rocuronium Warren 50 mg STK-MED ONCE .ROUTE; Start 09/15/25 at 07:19; Stop 09/15/25 at 07:20; Status DC Ropivacaine 150 mg STK-MED ONCE .ROUTE; Start 09/15/25 at 07:21; Stop 09/15/25 at 07:21; Status DC Lidocaine/ Epinephrine 20 ml STK-MED ONCE IJ; Start 09/15/25 at 07:21; Stop 09/15/25 at 07:21; Status DC Sodium Chloride 1,000 ml @ 100 mls/hr Q10H IV Last administered on 09/16/25at 00:32; Start 09/15/25 at 07:30; Stop 09/16/25 at 07:29; Status DC Polyethylene Glycol 17 gm DAILY PO; Start 09/15/25 at 09:00; Stop 10/15/25 at 08:59 Bisacodyl 10 mg DAILY PRN RC; Start 09/18/25 at 07:30; Stop 10/18/25 at 07:29 Ketorolac Tromethamine 15 mg Q6H PRN IV; Start 09/16/25 at 07:30; Stop 09/21/25 at 07:29 Ferrous Fumarate 324 mg DAILY PRN PO; Start 09/15/25 at 07:30; Stop 10/15/25 at 07:29 Ondansetron HCl 4 mg Q6H PRN IVP; Start 09/15/25 at 07:30; Stop 10/15/25 at 07:29 Calcium Carbonate 500 mg Q12H PRN PO; Start 09/15/25 at 07:30; Stop 10/15/25 at 07:29 Cefazolin Sodium 2 gm Q8H IVP; Start 09/15/25 at 12:30; Stop 09/15/25 at 14:12; Status DC Cyclobenzaprine HCl 5 mg Q8H PRN PO; Start 09/15/25 at 07:30; Stop 10/15/25 at 07:29 Gabapentin 100 mg TID PO Last administered on 09/15/25at 21:33; Start 09/15/25 at 09:00; Stop 10/15/25 at 08:59 Ketorolac Tromethamine 15 mg Q8H IV Last administered on 09/16/25at 00:27; Start 09/15/25 at 07:30; Stop 09/15/25 at 23:31; Status DC Docusate Sodium 100 mg BID PO Last administered on 09/15/25at 21:33; Start 09/15/25 at 09:00; Stop 10/15/25 at 08:59 Potassium Chloride 100 ml @ 100 mls/hr AD PRN IV; Start 09/15/25 at 07:30; Stop 10/15/25 at 07:29 Potassium Chloride 20 meq AD PRN PO; Start 09/15/25 at 07:30; Stop 10/15/25 at 07:29 Potassium Chloride 20 meq AD PRN PO; Start 09/15/25 at 07:30; Stop 10/15/25 at 07:29 Tramadol HCl 50 mg Q6H PRN PO; Start 09/15/25 at 07:30; Stop 09/20/25 at 07:29 Acetaminophen/ Hydrocodone Bitart Q4H PRN PO; Start 09/15/25 at 07:30; Stop 09/15/25 at 07:35; Status DC Dexamethasone Sodium Phosphate 10 mg STK-MED ONCE .ROUTE; Start 09/15/25 at 07:32; Stop 09/15/25 at 07:32; Status DC Ondansetron HCl 4 mg STK-MED ONCE .ROUTE; Start 09/15/25 at 07:44; Stop 09/15/25 at 07:44; Status DC Cefazolin Sodium 2 gm STK-MED ONCE IVPB Last administered on 09/15/25at 07:41; Start 09/15/25 at 07:41; Stop 09/15/25 at 08:17; Status DC Tranexamic Acid 1,000 mg STK-MED ONCE IV Last administered on 09/15/25at 07:48; Start 09/15/25 at 07:48; Stop 09/15/25 at 08:17; Status DC Ropivacaine 150 mg STK-MED ONCE IJ Last administered on 09/15/25at 08:21; Start 09/15/25 at 08:21; Stop 09/15/25 at 08:23; Status DC Ketorolac Tromethamine 30 mg STK-MED ONCE IJ Last administered on 09/15/25at 08:21; Start 09/15/25 at 08:21; Stop 09/15/25 at 08:23; Status DC Tranexamic Acid 1,000 mg STK-MED ONCE IV Last administered on 09/15/25at 09:13; Start 09/15/25 at 09:13; Stop 09/15/25 at 09:14; Status DC Glycopyrrolate 1 mg STK-MED ONCE .ROUTE; Start 09/15/25 at 09:19; Stop 09/15/25 at 09:19; Status DC Neostigmine Methylsulfate 10 mg STK-MED ONCE IV; Start 09/15/25 at 09:19; Stop 09/15/25 at 09:19; Status DC Acetaminophen 100 ml @ As Directed STK-MED ONCE .ROUTE; Start 09/15/25 at 09:28; Stop 09/15/25 at 09:28; Status DC Fentanyl Citrate 100 mcg STK-MED ONCE .ROUTE; Start 09/15/25 at 09:39; Stop 09/15/25 at 09:39; Status DC Albuterol 1 udvial ONCE ONCE IH Last administered on 09/15/25at 11:11; Start 09/15/25 at 10:30; Stop 09/15/25 at 10:31; Status DC Albuterol 1 udvial STK-MED ONCE IH; Start 09/15/25 at 10:12; Stop 09/15/25 at 10:13; Status DC Fentanyl Citrate 100 mcg STK-MED ONCE .ROUTE Last administered on 09/15/25at 10:21; Start 09/15/25 at 10:20; Stop 09/15/25 at 10:20; Status DC Ketorolac Tromethamine 15 mg STK-MED ONCE .ROUTE; Start 09/15/25 at 10:44; Stop 09/15/25 at 10:44; Status DC Cefazolin Sodium 2 gm Q8H IVP Last administered on 09/16/25at 00:24; Start 09/15/25 at 15:30; Stop 09/15/25 at 23:31; Status DC Acetaminophen/ Hydrocodone Bitart 2 tab Q4H PRN PO Last administered on 09/16/25at 05:50; Start 09/15/25 at 14:30; Stop 09/20/25 at 14:29 Acetaminophen/ Hydrocodone Bitart 1 tab Q4H PRN PO; Start 09/15/25 at 14:30; Stop 09/20/25 at 14:29 JAVI CARR CAUSE ANALYST Sep 16, 2025 08:08
[2025-09-16 09:10] VITALS: O2SAT 92
[2025-09-16] MEDS: HYDROcodone/APAP 5/325 1 TAB TABLET PO PRN (09:11)
[2025-09-16 12:03] VITALS: BP 147/68; PULSE 73; RESP 18; TEMP 97.5
[2025-09-16] MEDS ORDERED: HYDR-4060 PO (14:36)
[2025-09-16] MEDS ORDERED: CYCL-309 PO (14:36)
[2025-09-16] MEDS ORDERED: DOCU-116 PO (14:36)
[2025-09-16] MEDS ORDERED: GABA100C PO (14:36)
[2025-09-16] MEDS ORDERED: APIX2.5T PO (14:36)
[2025-09-16] MEDS: CALCIUM CARB 500MG PO PRN (15:31)
[2025-09-16 16:20] VITALS: BP 147/67; PULSE 78; RESP 17
--- NOTE | 2025-09-16 18:00 | NUR ---
PATIENT DISCHARGE PATIENT DISCHARGED HOME WITH HOME HEALTH. PERIPHERAL IV REMOVED CATHETER INTACT. DISCHARGE INSTRUCTIONS GIVEN. PRESCRIPTIONS FAXED TO PHARMACY. PATIENT AWARE TO F/U WITH DR. ELISE 10/07. [facility] CLEAN DRY AND INTACT. PATIENT REPORTS PAIN OF 08/04. PAIN MEDICATION ADMINISTERED. REPORT CALLED TO A [facility], [place], MESSAGE LEFT WITH ANSWERING SERVICE, PENDING CB FOR REPORT. PATIENT TAKEN DOWN BY WHEELCHAIR. ALL BELONGINGS SENT WITH PATIENT.
--- NOTE | 2025-09-16 20:00 | NUR ---
PATIENT REPORT S/W JESS ALDANA, FROM A [facility]ALING [facility] HOME [facility]ALTH REPORT GIVEN, ALL QUESTIONS ANSWERED.
--- NOTE | 2025-09-17 16:00 | NUR ---
ORTHO COORDINATOR: DISCHARGE FOLLOW UP CALL. SPOKE WITH DAUGHTER, REPORTS HOME HEALTH AGENCY VISITED TODAY AND REMOVED DRESSING. PATIENT PICKED UP ALL PRESCRIBED MEDICATIONS. HOME HEALTH AGENCY WILL MONITOR AND REPORT. DAUGHTER DESCRIBES NO DRAINAGE AND [facility] IS INTACT. DAUGHTER REPORTS PATIENT FEELS DIZZY AFTER TAKING MEDICATION, WHICH OCCURRED DURING HOSPITAL STAY. DAUGHTER REPORTS PATIENT HAVING REGULAR BOWEL MOVEMENTS. PAIN LEVEL MODERATE WITHOUT MOVEMENT, SEVERE WITH MOVEMENT, USING NARCOTICS EVERY SIX HOURS FOR PAIN CONTROL. REMINDED PATIENT OF DATE AND TIME OF FOLLOW UP APPOINTMENT. NO ADDITIONAL QUESTIONS OR CONCERNS.
== END 2025-09-16 18:12 | disposition home health service (06) ==
LOC: DAH 06:25 → DAHIP 06:26 → DAH 06:26 → 4CH 10:52
PROVIDERS: ADMIT Student in an Organized Health Care Education/Training Program; ATTEND Student in an Organized Health Care Education/Training Program
DX: M17.12 Unilateral primary osteoarthritis, left knee (principal); M06.9 Rheumatoid arthritis, unspecified; D62 Acute posthemorrhagic anemia; I12.0 Hypertensive chronic kidney disease with stage 5 chronic kidney disease or end stage renal disease; N18.6 End stage renal disease; J45.909 Unspecified asthma, uncomplicated; F32.9 Major depressive disorder, single episode, unspecified; Z79.899 Other long term (current) drug therapy; Z98.890 Other specified postprocedural states
CPT/HCPCS: 82040; 80048 ×2; 85025; 85610; 85730; 84134; 86140; 36415 ×2; 87641; 27447; 96374; 96376 ×2; 96375; 64447; 73560; 97161; 97116 ×3; 97530 ×4; 94640; 85027; G0378 ×35; A4223 ×2; A4663; J7120; J3010 ×4; J3490 ×6; J1100; J2250; J2704; J2405; J1885 ×6; J2710; J2795 ×3; J2371; J0690 ×4; C1713 ×2; C1776 ×2; A4649 ×2; A4930 ×2; A6255; A5120; A4215; A4222; A4221; A4216